=== PATIENT | female | born 1980 | race Caucasian/White ===

== ENCOUNTER 2016-07-15 12:04 | Emergency (ER) | payer OTHER | END 2016-07-15 13:45 | disposition home or self-care (01) | LOC: ER1 12:04 | DX: M79.662 Pain in left lower leg (principal); M79.652 Pain in left thigh; F17.200 Nicotine dependence, unspecified, uncomplicated; Z88.0 Allergy status to penicillin; Z88.5 Allergy status to narcotic agent; Z88.8 Allergy status to other drugs, medicaments and biological substances | CPT/HCPCS: 93971; 99283 ==

== ENCOUNTER 2020-03-12 11:40 | Emergency (ER) | payer OTHER ==
[~2020-03-12 11:40] MED LIST: ANTIVERT 25MG T25 MG PO; CYCLOBENZAPRINE5 MG PO; FLEXERIL 10 MG10 MG PO; IBUPROFEN600 MG PO; MOBIC15 MG PO; NAPROSYN500 MG PO; NORFLEX 100 MG100 MG PO; PREDNISONE 50 M50 MG PO; Voltaren Gel 1 % TOP; ZOFRAN4 MG PO
[2020-03-12 12:36] LABS: HEMOGLOBIN 13.8 gm/dl (12.3-15.3); RED BLOOD COUNT 4.62 M/UL (4.00-5.10)
[2020-03-12 12:51] LABS: BUN/CREATININE RATIO 11 (0-10)
[2020-03-12] MEDS ORDERED: BENTYL 20MG TAB20 MG PO (16:20)
== END 2020-03-12 16:53 | disposition home or self-care (01) ==
LOC: ER1 11:40
PROVIDERS: Emergency Medicine
DX: R10.11 Right upper quadrant pain (principal); R91.8 Other nonspecific abnormal finding of lung field; N13.30 Unspecified hydronephrosis; K21.9 Gastro-esophageal reflux disease without esophagitis; F17.200 Nicotine dependence, unspecified, uncomplicated; Z87.39 Personal history of other diseases of the musculoskeletal system and connective tissue; Z90.710 Acquired absence of both cervix and uterus; Z98.51 Tubal ligation status; Z88.0 Allergy status to penicillin; Z88.2 Allergy status to sulfonamides; Z88.1 Allergy status to other antibiotic agents; Z88.5 Allergy status to narcotic agent; Z91.040 Latex allergy status
CPT/HCPCS: 76705; 80053; 81001; 83690; 84703; 85025; 99284

== ENCOUNTER → 2020-03-20 | Outpatient (CLI) | payer OTHER ==
[~2020-03-20] MED LIST changes: +BENTYL 20MG TAB20 MG PO
== END ==
LOC: NM 14:04
DX: R19.8 Other specified symptoms and signs involving the digestive system and abdomen (principal)
CPT/HCPCS: 78227; A9537; J2805

== ENCOUNTER → 2020-05-02 | Outpatient (CLI) | payer OTHER | LOC: KOH-I 11:11 | DX: M54.6 Pain in thoracic spine (principal) | CPT/HCPCS: 72146 ==

== ENCOUNTER → 2020-05-14 | Outpatient (CLI) | payer OTHER | LOC: EMI 15:30 | DX: H93.19 Tinnitus, unspecified ear (principal); E23.6 Other disorders of pituitary gland; R90.89 Other abnormal findings on diagnostic imaging of central nervous system | CPT/HCPCS: 70551 ==

== ENCOUNTER → 2020-10-19 | Outpatient (CLI) | payer OTHER | LOC: KOH-I 09:30 | DX: M54.2 Cervicalgia (principal); M47.22 Other spondylosis with radiculopathy, cervical region; M48.02 Spinal stenosis, cervical region; M25.78 Osteophyte, vertebrae | CPT/HCPCS: 72141 ==

== ENCOUNTER 2021-01-02 08:05 | Emergency (ER) | payer OTHER ==
[2021-01-02 08:42] LABS: HEMOGLOBIN 14.8 gm/dl (12.3-15.3); RED BLOOD COUNT 5.02 M/UL (4.00-5.10); WHITE BLOOD COUNT 8.6 K/UL (4.5-11.0)
[2021-01-02 09:11] LABS: BUN/CREATININE RATIO 11 (0-10)
== END 2021-01-02 11:00 | disposition home or self-care (01) ==
LOC: ER1 08:05
PROVIDERS: Physician Assistant
DX: F41.9 Anxiety disorder, unspecified (principal); R51.9 Headache, unspecified; E78.5 Hyperlipidemia, unspecified; J45.909 Unspecified asthma, uncomplicated; K21.9 Gastro-esophageal reflux disease without esophagitis; Z20.822 Contact with and (suspected) exposure to COVID-19; F17.210 Nicotine dependence, cigarettes, uncomplicated; Z90.710 Acquired absence of both cervix and uterus; Z88.5 Allergy status to narcotic agent; Z88.1 Allergy status to other antibiotic agents; Z88.8 Allergy status to other drugs, medicaments and biological substances
CPT/HCPCS: 70450; 80053; 81001; 82550; 82553; 83874; 84439; 84443; 84484; 85025; 93005; 99284; U0002

== ENCOUNTER → 2021-01-04 | Outpatient (CLI) | payer OTHER ==
[2021-01-05 09:12] LABS: PROGESTERONE 0.7 ng/mL (.)
== END ==
LOC: LAB 14:15
PROVIDERS: Nurse Practitioner Family
DX: F41.9 Anxiety disorder, unspecified (principal); F32.9 Major depressive disorder, single episode, unspecified; R45.89 Other symptoms and signs involving emotional state; Z79.890 Hormone replacement therapy
CPT/HCPCS: 36415; 82670; 84144

== ENCOUNTER → 2021-02-06 | Outpatient (CLI) | payer OTHER | LOC: KOH-I 10-29 14:00 | DX: E04.1 Nontoxic single thyroid nodule (principal) | CPT/HCPCS: 76536 ==

== ENCOUNTER → 2021-03-28 | Outpatient (CLI) | payer OTHER | LOC: CT 11:00 | DX: R91.1 Solitary pulmonary nodule (principal) | CPT/HCPCS: 71250 ==

== ENCOUNTER 2021-06-10 11:28 | Emergency (ER) | payer OTHER ==
[2021-06-10] MEDS ORDERED: CEPHALEXIN500 MG PO (12:19)
== END 2021-06-10 12:48 | disposition home or self-care (01) ==
LOC: ER1 11:28
DX: S90.811A Abrasion, right foot, initial encounter (principal); Z88.0 Allergy status to penicillin; Z88.5 Allergy status to narcotic agent; Z88.1 Allergy status to other antibiotic agents; Z88.8 Allergy status to other drugs, medicaments and biological substances; W45.0XXA Nail entering through skin, initial encounter; Y92.009 Unspecified place in unspecified non-institutional (private) residence as the place of occurrence of the external cause
CPT/HCPCS: 90471; 90714; 99282